=== PATIENT | male | born 1975 | race African-American/Black ===

== ENCOUNTER → 2017-11-09 | Outpatient (CLI) | payer OTHER ==
--- NOTE | 2017-11-09 15:51 | KCIC ---
MRI of the thoracic spine without contrast 11/09/2017 CLINICAL HISTORY: Mid back pain with scapula and left arm pain. TECHNIQUE: Unenhanced T1-weighted, T2-weighted and inversion recovery sagittal and T1-weighted and T2-weighted axial images of the thoracic spine were obtained. T2-weighted sagittal images of the cervical, thoracic and lumbar spine were obtained for localization purposes. FINDINGS: Minimal S-shaped curvature of the thoracolumbar spine is seen. Degenerative signal changes are seen involving all of the disks of the thoracic spine. Degenerative signal changes are seen within the marrow surrounding these discs. No area of abnormal signal intensity is seen involving the thoracic spinal cord. Degenerative changes are seen throughout the thoracic disc spaces. These consist of minimal to mild generalized disc bulges, superimposed focal disc protrusions which measure 2 to 3 mm in AP diameter and degenerative changes involving the facet joints. A 3 mm left paracentral focal disc protrusion is seen at T7-8 which results in mild left-sided central spinal canal stenosis without evidence of cord impingement. No additional area of significant central spinal canal stenosis is seen. No neural foraminal stenosis is noted. IMPRESSION: Degenerative changes are seen throughout the thoracic spine. These findings result in mild left-sided central spinal canal stenosis at T7-8 without evidence of cord impingement. No neural foraminal stenosis is seen. Electronically signed by: Michael Soto MD (11/09/2017 3:47 PM) [id number]
== END | disposition home or self-care (01) ==
LOC: KCIC MRI 14:37
PROVIDERS: ATTEND Orthopaedic Surgery
DX: M47.894 Other spondylosis, thoracic region (principal); M51.24 Other intervertebral disc displacement, thoracic region; M48.04 Spinal stenosis, thoracic region
CPT/HCPCS: 72146